=== PATIENT | male | born 1960 | race Caucasian/White ===

== ENCOUNTER 2023-01-23 10:02 | Day surgery (SDC) | payer OTHER ==
[2023-01-20 15:29] VITALS: BMI 22.6
[2023-01-23 10:14] VITALS: RESP 18
[2023-01-23] MEDS ORDERED: PROPOFOL 120 ML ONE (10:58)
[2023-01-23 11:27] VITALS: TEMP 97.4
[2023-01-23 11:38] VITALS: BP 100/50; PULSE 78
== END 2023-01-23 11:45 | disposition home or self-care (01) ==
LOC: FASU-ENDO 10:02
PROVIDERS: ATTEND Internal Medicine Gastroenterology
PROC: 0DBN8ZX Excision of Sigmoid Colon, Via Natural or Artificial Opening Endoscopic, Diagnostic (ICD-10-PCS; principal; 2023-01-23 11:02)
DX: Z12.11 Encounter for screening for malignant neoplasm of colon (principal); Z83.71 Family history of colonic polyps; K57.30 Diverticulosis of large intestine without perforation or abscess without bleeding
CPT/HCPCS: 88305-TC